=== PATIENT | female | born 1950 | race Caucasian/White ===

== ENCOUNTER 2020-01-25 10:45 | Outpatient (CLI) | payer OTHER ==
[~2020-01-25 10:45] MED LIST: CALTRATE-600600 MG; PLAQUENIL; PREDNISONE10 MG; PROTONIX40 MG; SYNTHROID150 MCG; TOPROL XL25 MG; VASOTEC5 MG; VIT C 500 MG-E500 MG; [UNRECOGNIZED DRUG - OTHER]
== END 2020-01-25 12:55 | disposition home or self-care (01) ==
LOC: NUCLEAR 10:45
DX: C50.112 Malignant neoplasm of central portion of left female breast (principal)
CPT/HCPCS: A9552; 78815

== ENCOUNTER 2020-09-06 18:46 | Emergency (ER) | payer OTHER ==
[~2020-09-06] VITALS: Ht 165.1 cm; Wt 62.6 kg
[~2020-09-06 18:46] MED LIST changes: +CEFPODOXIME PR200 MG PO; +ONDANSETRON HCL4 MG PO
[2020-09-06] MEDS ORDERED: IBRANCE125 M1 (19:11)
== END 2020-09-07 00:45 | disposition home or self-care (01) ==
LOC: ER 18:46
DX: R11.2 Nausea with vomiting, unspecified (principal); E86.0 Dehydration; I95.9 Hypotension, unspecified

== ENCOUNTER 2021-11-17 09:37 | Outpatient (CLI) | payer OTHER ==
[~2021-11-17 09:37] MED LIST changes: +IBRANCE125 M1
== END 2021-11-17 09:43 | disposition home or self-care (01) ==
LOC: LAB 09:37
DX: Z20.828 Contact with and (suspected) exposure to other viral communicable diseases (principal); Z20.822 Contact with and (suspected) exposure to COVID-19